=== PATIENT | female | born 1980 | race Caucasian/White ===

== ENCOUNTER 2018-07-01 14:06 | Emergency (ER) | payer OTHER ==
--- NOTE | 2018-07-01 14:12 | UC ---
Head Injury HPI - HPI Summary HPI Summary: 38 yo female presents with head injury. 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 She immediately felt dazed and dizzy. She developed a headache soon after. Later that evening she became nauseous and reports "dry heaving", but did eat and drink as normal. This morning she felt ok when she woke up and tried to go to work, but at work she felt dizzy and her headache returned prompting her visit to . Currently she reports mild dizziness and a headache. She is not on any blood thinners. No hx of bleeding disorders. Denies fever, vision changes, weakness, SOB, chest pain, abdominal pain, n/v. - History Of Current Complaint Stated Complaint: HEAD INJURY Time Seen by Provider: 07/01/18 14:12 Hx Obtained From: Patient Hx Last Menstrual Period: END SEP Onset/Duration: Sudden Onset Severity Currently: Mild Severity Initially: Mild Pain Intensity: 2 Pain Scale Used: 0-10 Numeric - Allergies/Home Medications Allergies/Adverse Reactions: Allergies Allergy/AdvReac Type Severity Reaction Status Date / Time No Known Allergies Allergy Verified 07/18/16 12:53 PMH/Surg Hx/FS Hx/Imm Hx Endocrine History: Hypothyroidism Psychological History: Anxiety, Depression - Surgical History Surgical History: Yes Surgery Procedure, Year, and Place: TONSILECTOMY, RIGHT CARPAL TUNNEL SURGERY - Family History Known Family History: Positive: Other - Thyroid disease - Social History Occupation: Employed Full-time Lives: With Family Alcohol Use: Occasionally Substance Use Type: None Smoking Status (MU): Never Smoked Tobacco Review of Systems All Other Systems Reviewed And Are Negative: Yes Constitutional: Positive: Negative Skin: Positive: Negative Respiratory: Positive: Negative Cardiovascular: Positive: Negative Gastrointestinal: Positive: Negative Neurovascular: Positive: Negative Musculoskeletal: Positive: Negative Neurological: Positive: Headache Psychological: Positive: Negative Physical Exam - Summary Physical Exam Summary: GENERAL: NAD. WDWN. No pain distress. SKIN: Mild superficial abrasion on scalp at site of impact. HEENT: Head: AT/NC. No raccoon eyes or nolasco's sign. Eyes: PERRLA. EOM intact. NECK: Supple. FROM NTTP CHEST: CTAB. No r/r/w. No accessory muscle use. Breathing comfortably and in no distress. CV: RRR. Without m/r/g. Pulses intact. Brisk cap refill. ABDOMEN: Soft. NTTP. No distention or guarding. Bowel sounds present MSK: FROM in B/L UEs and LEs with symmetric strength. NEURO: A&Ox3. 3 word recall, remote, recent memory, ability to follow 2-step directions, and attention intact. CN: II: Peripheral palacio intact. Vision normal. III, IV, : EOMI. No nystagmus. PERRLA. V: Sensations intact and symmetric. Opens mouth and clenches teeth. VII: No facial asymmetry. Forehead wrinkles. Grins, shuts eyes, frowns, puffs cheeks. VIII: Hearing intact to finger rub. IX, X: Swallows and coughs. Uvula midline. XI: Shrugs shoulders. Turns head against resistance. XII: No tongue deviation Jedvyi-iq-czvy are intact. Gait with normal base. Romberg: maintains balance, no pronator drift. Normal speech. No facial drooping. PSYCH: Age appropriate behavior. Triage Information Reviewed: Yes Vital Signs: Vital Signs: Temp Pulse Resp BP Pulse Ox 98.8 F 94 17 117/73 99 07/01/18 14:14 07/01/18 14:14 07/01/18 14:14 07/01/18 14:14 07/01/18 14:14 Vital Signs Reviewed: Yes Head Injury Course/Dx - Course Course Of Treatment: Discussed with pt that I suspect she suffered a mild concussion and/or is having residual discomfort from the head impact. Given her low impact injury, no risk factors, and improvement of symptoms today, I did not recommend a head CT. She stated that she would feel more comfortable if imaging was performed and elected to have a head CT today. CT results: IMPRESSION: NO ACUTE INTRACRANIAL PATHOLOGY. Discussed results with pt and advised her that if her symptoms worsen she should be evaluated in the ED. If her discomfort persists or she has difficulties returning to work - please follow up with Dr. Arteaga of [facility]. Pt voiced understanding. - Differential Dx/Diagnosis Provider Diagnosis: Head injury Discharge - Sign-Out/Discharge Documenting (check all that apply): Patient Departure All imaging exams completed and their final reports reviewed: Yes - Discharge Plan Condition: Stable Disposition: HOME Patient Education Materials: Head Injury (ED) Referrals: Loren Mccarthy NP [Primary Care Provider] - Nam Arteaga MD [Medical Doctor] - If Needed Additional Instructions: If you develop a fever, shortness of breath, chest pain, new or worsening symptoms - please call your PCP or go to the ED. 1) Please call Dr. Arteaga at the number below to schedule a follow up appointment regarding your work related injury 2) Please refrain from any mental or physical activities that worsen your symptoms. - Billing Disposition and Condition Condition: STABLE Disposition: Home
[2018-07-01 14:21] VITALS: BP 117/73
== END 2018-07-01 15:26 | disposition home or self-care (01) ==
LOC: UCEAST 14:06
DX: S09.90XA Unspecified injury of head, initial encounter (principal); W22.8XXA Striking against or struck by other objects, initial encounter; Y92.218 Other school as the place of occurrence of the external cause; Y99.0 Civilian activity done for income or pay
CPT/HCPCS: 70450; 99211; G0463

== ENCOUNTER 2019-06-28 06:10 | Day surgery (SDC) | payer OTHER ==
[~2019-06-28 06:10] MED LIST: Buffered Lidocaine 1% SYRIN* 1 ML/SYRINGE INTRADERM ONE; Dexamethasone IV* 4 MG/ML 1 ML (4 MG) IV SLOW PU ONE; Famotidine IV* 10 MG/ML 2 ML (20 mg) IV ONE; Lactated Ringers 1000 ML Bag* 1,000 ML IV SCH
[2019-06-28] MEDS ORDERED: Dexamethasone IV* 4 MG/ML 1 ML (4 MG) ONE (06:50)
[2019-06-28] MEDS ORDERED: Famotidine IV* 10 MG/ML 2 ML (20 mg) ONE (06:51)
[2019-06-28] MEDS ORDERED: ceFAZolin 2 GM in NS PREMIX(*) 2 GM/100 ML BAG IVPB ONE (06:51)
[2019-06-28] MEDS ORDERED: Buffered Lidocaine 1% SYRIN* 1 ML/SYRINGE INTRADERM ONE (06:51)
[2019-06-28] MEDS ORDERED: Bupivacaine 0.25% SDV* 30 ML ONE (07:10)
[2019-06-28] MEDS ORDERED: fentaNYL* 50 MCG/ML 2 ML VIAL (100 MCG VIAL) ONE ×2 (07:33→10:08)
[2019-06-28] MEDS ORDERED: KETAMINE HCL* 50 MG/ML 10 ML VIAL ONE (07:34)
[2019-06-28] MEDS ORDERED: Propofol* 10 MG/ML 20 ML BTL ONE (07:35)
[2019-06-28] MEDS ORDERED: Ketorolac INJ* 30 MG/ML 1 ML VIAL ONE (07:35)
[2019-06-28] MEDS ORDERED: Ondansetron INJ* 2 MG/ML VIAL ONE (07:35)
[2019-06-28] MEDS ORDERED: Midazolam* 1 MG/ML 2 ML VIAL (2 MG) ONE (07:35)
[2019-06-28] MEDS ORDERED: Lidocaine 2% PF * 5 ML VIAL ONE (07:35)
[2019-06-28] MEDS ORDERED: fentaNYL* 50 MCG/ML 2 ML VIAL (100 MCG VIAL) IV PRN (07:58)
[2019-06-28] MEDS ORDERED: Naloxone* 0.4 MG/ML 1 ML VIAL IV PRN (07:58)
[2019-06-28] MEDS ORDERED: DiMENhydriNATE IV* 50 MG/ML VIAL IV PUSH PRN (07:58)
[2019-06-28] MEDS ORDERED: Furosemide IV* 10 MG/ML 2 ML VIAL (20 MG) ONE (11:02)
[2019-06-28 11:06] VITALS: BP 112/64
--- NOTE | 2019-06-29 00:19 | OP ---
DATE OF OPERATION: 06/28/19 - [facility] DATE OF : 78 SURGEON: Moses Nobles MD BUTADIENE COMPRESSOR OPERATOR: MARIANA Condon. An court assistant was needed for the procedure to aid in positioning of the arm and retraction. ANESTHESIOLOGIST: Dr. Barrios. ANESTHESIA: General. PRE-OP DIAGNOSIS: Right cubital tunnel syndrome. POST-OP DIAGNOSIS: Right cubital tunnel syndrome. OPERATIVE REPORT: Right in-situ cubital tunnel release. INDICATIONS: Ms. He has the aforementioned condition affecting the ring and small fingers. We had talked about treatment options and she had wanted to proceed with surgery. ESTIMATED BLOOD LOSS: 2 mL. COMPLICATIONS: None. FINDINGS: See above and below. DESCRIPTION OF PROCEDURE: Ms. He was seen in the preoperative holding area. The correct site, side and procedure were identified. We came back to the operating room. The arm was prepped and draped in the usual fashion and a time-out was performed. The arm was exsanguinated with the Esmarch and the tourniquet was inflated to 225 mmHg. I abducted and externally rotated the arm. A curvilinear incision was made centered over the cubital tunnel. Dissection was carried down. Full thickness flaps were raised. The medial antebrachial cutaneous nerve was identified and preserved throughout the surgery. I began the decompression just proximal to Morris's ligament. The fascia was released all the way past the arcade of [place]. I then came distally and released the Morris's ligament. Superficial FCU fascia was incised. Two edges of the FCU muscle were split. The subfascial layer was released. At this point, the decompression was looking very nice. Hemostasis was obtained with the Bovie. I confirmed that the nerve was fully decompressed to check for instability, there was none. I therefore reapproximated the subcutaneous tissue with 3-0 Vicryl suture, the skin was closed with 3-0 Monocryl and Steri-Strips. 0.25% Marcaine was infiltrated all about the area. A soft dressing was applied and she was taken to the recovery room in stable condition. [id number]/[facility] #: [id number] MTDD
== END 2019-06-28 11:00 | disposition home or self-care (01) ==
LOC: OR 06:10
PROVIDERS: ATTEND Orthopaedic Surgery Hand Surgery
DX: G56.21 Lesion of ulnar nerve, right upper limb (principal); F41.8 Other specified anxiety disorders; E03.9 Hypothyroidism, unspecified
CPT/HCPCS: 81025; J0690; J1100; J1885; J1940; J2250; J2405; J2704; J3010; J3490

== ENCOUNTER 2023-09-25 09:24 | Observation (INO) ==
[~2023-09-25 09:24] MED LIST changes: -Buffered Lidocaine 1% SYRIN* 1 ML/SYRINGE INTRADERM ONE; -Dexamethasone IV* 4 MG/ML 1 ML (4 MG) IV SLOW PU ONE; -Famotidine IV* 10 MG/ML 2 ML (20 mg) IV ONE; -Lactated Ringers 1000 ML Bag* 1,000 ML IV SCH; +Naloxone 0.4 mg VIAL 0.4 mg/ml 1 ml VIAL IV PUSH PRN
[2023-09-25] MEDS ORDERED: Scopolamine 1 mg/72hr PATCH ONE (10:10)
[2023-09-25] MEDS: NS 0.9% 500 ml BAG 500 ML IV ONE (10:10)
[2023-09-25] MEDS ORDERED: oxyCODONE SR 10 mg TAB ONE (10:10)
[2023-09-25] MEDS ORDERED: Ondansetron 4 mg VIAL 2 MG/ML 2 ml VIAL ONE (10:10)
[2023-09-25] MEDS: oxyCODONE SR 10 mg TAB PO ONE (10:14)
[2023-09-25] MEDS: Ondansetron 4 mg VIAL 2 MG/ML 2 ml VIAL IV ONE (10:15)
[2023-09-25 10:16] LABS: ABS Eosinophils 0.1 10^3/uL (0.0-0.5); ABS Lymphocytes 2.1 10^3/uL (1.0-4.8); ABS Monocytes 0.7 10^3/uL (0.0-0.9); ABS Neutrophils 4.4 10^3/uL (1.5-7.6); ABS Nucleated RBC 0.01 10^3/ul; Eosinophil % 1.3 %; Hematocrit 39.7 % (35-45); Hemoglobin 13.7 g/dL (11.5-14.3); Lymphocyte % 27.9 %; Mean Corpuscular Hemoglobin 30.6 pg (27-33); Mean Corpuscular Hgb Conc 34.6 g/dL (31-36); Mean Corpuscular Volume 88.4 fL (80-97); Mean Platelet Volume 7.4 fL (7.5-11.2); Nucleated Red Blood Cells % 0.1 %/100WBC (0.0-0.8); Platelet Count 256 10^3/uL (150-450); Red Blood Count 4.49 10^6/uL (3.63-4.92); Red Cell Distribution Width 13.1 % (12-17); White Blood Count 7.4 10^3/uL (3.8-11.8)
[2023-09-25] MEDS: Scopolamine 1 mg/72hr PATCH TRANSDERM ONE (10:20)
[2023-09-25 10:24] LABS: INR 0.98 (0.83-1.13)
[2023-09-25] MEDS: NS 0.9% 1000 ml BAG 1,000 ML IV SCH (10:25)
[2023-09-25 10:46] LABS: Calcium 9.4 mg/dL (8.6-10.3); Creatinine, Serum 0.73 mg/dL (0.51-0.95); Potassium 4.3 mmol/L (3.5-5.0); eGFR CKD-EPI 103.9 (>60)
[2023-09-25 10:53] LABS: HCG Pregnancy 0.68 mIU/mL
[2023-09-25] MEDS ORDERED: Iohexol 350 (CONTRAST) 100 ML PAK IV ONE ×2 (11:05→12:00)
[2023-09-25] MEDS ORDERED: Lidocaine 1% VIAL 10 MG/ML 30 ML VIAL ONE (11:05)
[2023-09-25] MEDS ORDERED: nitroGLYCERIN DRIP 25,000 MCG/250 ML BTL ONE (11:05)
[2023-09-25] MEDS ORDERED: Heparin 2 UNITS/ML IVPREMIX 2,000 UNIT/1,000 ML BAG IV ONE (11:05)
[2023-09-25] MEDS ORDERED: Heparin 2 UNITS/ML IVPREMIX 1,000 UNIT/500 ML BAG IV ONE ×2 (11:14→12:32)
[2023-09-25] MEDS: Clindamycin 900 MG/50 **NS BAG 900 MG/50 ML BAG IV ONE (11:19)
[2023-09-25] MEDS ORDERED: fentaNYL 100 mcg/2 ml 50 MCG/ML VIAL ONE (11:20)
[2023-09-25] MEDS ORDERED: Midazolam 5 mg/5 ml VIAL 1 mg/ml 5 ml VIAL (5 mg) ONE (11:20)
[2023-09-25] MEDS ORDERED: Heparin 1,000 UNIT/ML 10 ml (10,000 UNITS) CATHLAB/DIALYSIS ONE (11:38)
[2023-09-25] MEDS ORDERED: HYDROmorphone 0.5 MG/0.5 ML SYRINGE ONE ×3 (12:21→12:42)
[2023-09-25] MEDS: HYDROmorphone PCA 20 MG/20 ML PCA.SYRING PCA SCH (13:10)
[2023-09-25] MEDS ORDERED: Lorazepam PYXIS KEY PRN (13:29)
[2023-09-25] MEDS ORDERED: LORazepam 2 mg VIAL 1 ml ONE (13:32)
[2023-09-25] MEDS: LORazepam 2 mg VIAL 1 ml IV PUSH ONE (13:37)
[2023-09-25] MEDS: Ondansetron 4 mg VIAL 2 MG/ML 2 ml VIAL IV SCH (20:05)
[2023-09-26] MEDS: fentaNYL 100 mcg/2 ml 50 MCG/ML VIAL IV SLOW PU ONE (04:01)
[2023-09-26] MEDS: HYDROmorphone 1 MG/1 ML SYRINGE IV SLOW PU ONE (05:47)
[2023-09-26 09:20] LABS: ABS Lymphocytes 1.8 10^3/uL (1.0-4.8); ABS Monocytes 1.4 10^3/uL (0.0-0.9); ABS Neutrophils 10.7 10^3/uL (1.5-7.6); Eosinophil % 0.2 %; Hematocrit 37.3 % (35-45); Hemoglobin 12.7 g/dL (11.5-14.3); Lymphocyte % 13.1 %; Mean Corpuscular Hemoglobin 30.2 pg (27-33); Mean Corpuscular Volume 88.9 fL (80-97); Mean Platelet Volume 7.4 fL (7.5-11.2); Platelet Count 257 10^3/uL (150-450); Red Cell Distribution Width 12.8 % (12-17)
[2023-09-26 09:21] VITALS: BP 118/77
[2023-09-26 10:01] LABS: Calcium 8.6 mg/dL (8.6-10.3); Creatinine, Serum 0.61 mg/dL (0.51-0.95); Potassium 4.1 mmol/L (3.5-5.0)
[2023-09-26] MEDS ORDERED: HYDROcodone/ACETAMIN 5/325 mg TAB PO PRN (10:13)
[2023-09-26] MEDS: CMC:Ketorolac 10 mg TAB (NF) PO SCH (11:20)
== END 2023-09-26 12:02 | disposition home or self-care (01) ==
LOC: CHICATH 09:24 → SSU 09:24 → SUATTDRO 14:23
PROVIDERS: ADMIT Radiology Diagnostic Radiology; ATTEND Internal Medicine
PROC: ANG.UFE (2023-09-25 11:15)